=== PATIENT | male | born 1985 | race Caucasian/White ===

== ENCOUNTER 2023-04-26 15:09 | Outpatient (REF) | payer BC, SELFPAY | END 2023-04-26 15:10 | disposition home or self-care (01) | LOC: HO.BBR 15:09 | PROVIDERS: Visit Provider Internal Medicine Hematology & Oncology | DX: Z13.89 Encounter for screening for other disorder (principal) ==

== ENCOUNTER → 2023-07-25 13:47 | Outpatient (BNV) | payer BC, SELFPAY | PROVIDERS: PCP Internal Medicine; Visit Provider Internal Medicine Medical Oncology | DX: E83.119 Hemochromatosis, unspecified (principal) | CPT/HCPCS: 99204; 99213 ==

== ENCOUNTER 2023-07-25 15:05 | Outpatient (REF) | payer BC, SELFPAY ==
[2023-07-25 15:23] LABS: MANUAL DIFF FLAG NO
[2023-07-25 15:26] LABS: Basophils Percent Auto 0.3 % (0-2); Eosinophils Absolute Auto 0.1 X10*3/uL (0.0-0.4); Hematocrit 39.7 % (42.0-52.0); Hemoglobin 14.3 g/dl (14.0-18.0); Imm Gran Abs Auto 0.02 X10*3/uL (0.00-0.03); Imm Gran Pct Auto 0.3 % (0.0-0.4); Lymphocytes Absolute Auto 1.7 X10*3/uL (1.2-4.9); Mean Corpuscular Hemoglobin 32.6 pg (27.0-33.0); Mean Corpuscular Volume 90.6 fL (80.0-98.0); Mean Platelet Volume 11.2 fL (9.4-12.4); Monocytes Absolute Auto 0.6 X10*3/uL (0.1-1.2); Monocytes Percent Auto 8.3 % (2-11); Neutrophils Absolute Auto 4.8 x10*3/uL (2.0-8.3); Neutrophils Percent Auto 66.1 % (45-73); Platelet Count 236 X10*3/uL (160-400); Red Blood Count 4.38 X10*6/uL (4.60-5.80); Red Cell Distribution Width 11.9 % (11.0-16.0); White Blood Count 7.2 X10*3/uL (4.8-10.8)
[2023-07-25 16:09] LABS: Alanine Aminotransferase 23 U/L (0-40); Albumin Level 4.7 g/dL (3.5-5.0); Alkaline Phosphatase 62 U/L (39-117); Anion Gap 15 (12-20); Aspartate Amino Transferase 23 U/L (5-37); Bilirubin Total 0.8 mg/dL (0.0-1.0); Blood Urea Nitrogen 9 mg/dL (9-16); Calcium 9.3 mg/dL (8.4-10.2); Carbon Dioxide 24 mmol/L (22-29); Chloride 100 mmol/L (96-108); Estimated Glomerular Filt Rate > 60; Glucose Random 92 mg/dL (60-115); Iron 197 mcg/dL (45-160); Percent Iron Saturation 79 % (15-50); Potassium 3.9 mmol/L (3.3-5.1); Sodium 135 mmol/L (135-145); Total Iron Binding Capacity 249 mcg/dL (228-428); Total Protein 7.4 g/dL (6.5-8.0); Unsaturated Iron Binding 52 ug/dL
[2023-07-25 16:26] LABS: Ferritin 90 ng/mL (20-250)
[2023-07-27 12:29] LABS: Alpha Fetoprotein 2.2 ng/mL (<6.1)
== END 2023-07-25 15:06 | disposition home or self-care (01) ==
LOC: HO.BBR 15:05
PROVIDERS: Visit Provider Internal Medicine Medical Oncology
DX: E83.110 Hereditary hemochromatosis (principal)
CPT/HCPCS: 36415; 80053; 82105; 82728; 83540; 85025

== ENCOUNTER 2023-10-03 13:52 | Outpatient (REF) | payer BC, SELFPAY ==
[2023-10-03 14:10] LABS: MANUAL DIFF FLAG NO
[2023-10-03 14:12] LABS: Basophils Percent Auto 0.5 % (0-2); Eosinophils Absolute Auto 0.1 X10*3/uL (0.0-0.4); Eosinophils Percent Auto 1.2 % (0-4); Hematocrit 38.4 % (42.0-52.0); Hemoglobin 13.7 g/dl (14.0-18.0); Imm Gran Abs Auto 0.02 X10*3/uL (0.00-0.03); Imm Gran Pct Auto 0.3 % (0.0-0.4); Lymphocytes Absolute Auto 1.9 X10*3/uL (1.2-4.9); Lymphocytes Percent Auto 28.4 % (20-40); Mean Corpuscular HGB Conc 35.7 g/dl (31.0-36.0); Mean Corpuscular Hemoglobin 32.5 pg (27.0-33.0); Mean Platelet Volume 10.8 fL (9.4-12.4); Monocytes Absolute Auto 0.5 X10*3/uL (0.1-1.2); Monocytes Percent Auto 7.8 % (2-11); Neutrophils Absolute Auto 4.1 x10*3/uL (2.0-8.3); Neutrophils Percent Auto 61.8 % (45-73); Platelet Count 251 X10*3/uL (160-400); Red Blood Count 4.22 X10*6/uL (4.60-5.80); Red Cell Distribution Width 12.1 % (11.0-16.0); White Blood Count 6.6 X10*3/uL (4.8-10.8)
[2023-10-03 15:02] LABS: Alanine Aminotransferase 28 U/L (0-40); Albumin Level 4.7 g/dL (3.5-5.0); Alkaline Phosphatase 70 U/L (39-117); Anion Gap 13 (12-20); Aspartate Amino Transferase 27 U/L (5-37); Bilirubin Total 0.6 mg/dL (0.0-1.0); Blood Urea Nitrogen 12 mg/dL (9-16); Carbon Dioxide 25 mmol/L (22-29); Chloride 103 mmol/L (96-108); Estimated Glomerular Filt Rate > 60; Glucose Random 96 mg/dL (60-115); Iron 198 mcg/dL (45-160); Percent Iron Saturation 78 % (15-50); Potassium 3.9 mmol/L (3.3-5.1); Sodium 137 mmol/L (135-145); Total Iron Binding Capacity 254 mcg/dL (228-428); Total Protein 7.3 g/dL (6.5-8.0); Unsaturated Iron Binding 56 ug/dL
[2023-10-03 15:11] LABS: Ferritin 81 ng/mL (20-250)
== END 2023-10-03 13:53 | disposition home or self-care (01) ==
LOC: HO.BBR 13:52
PROVIDERS: PCP Internal Medicine; Visit Provider Internal Medicine Medical Oncology
DX: E83.110 Hereditary hemochromatosis (principal)
CPT/HCPCS: 36415; 80053; 82728; 83540; 85025

== ENCOUNTER 2023-12-04 10:52 | Outpatient (REF) | payer BC, SELFPAY ==
[2023-12-04 11:18] LABS: MANUAL DIFF FLAG NO
[2023-12-04 11:22] LABS: Basophils Percent Auto 0.6 % (0-2); Eosinophils Absolute Auto 0.1 X10*3/uL (0.0-0.4); Eosinophils Percent Auto 1.9 % (0-4); Hematocrit 39.2 % (42.0-52.0); Hemoglobin 13.4 g/dl (14.0-18.0); Imm Gran Abs Auto 0.02 X10*3/uL (0.00-0.03); Imm Gran Pct Auto 0.4 % (0.0-0.4); Lymphocytes Absolute Auto 1.5 X10*3/uL (1.2-4.9); Lymphocytes Percent Auto 28.5 % (20-40); Mean Corpuscular HGB Conc 34.2 g/dl (31.0-36.0); Mean Corpuscular Hemoglobin 31.9 pg (27.0-33.0); Mean Corpuscular Volume 93.3 fL (80.0-98.0); Mean Platelet Volume 11.4 fL (9.4-12.4); Monocytes Absolute Auto 0.4 X10*3/uL (0.1-1.2); Neutrophils Absolute Auto 3.3 x10*3/uL (2.0-8.3); Neutrophils Percent Auto 60.6 % (45-73); Platelet Count 210 X10*3/uL (160-400); Red Cell Distribution Width 12.5 % (11.0-16.0); White Blood Count 5.4 X10*3/uL (4.8-10.8)
[2023-12-04 13:01] LABS: Alanine Aminotransferase 27 U/L (0-40); Albumin Level 4.5 g/dL (3.5-5.0); Alkaline Phosphatase 70 U/L (39-117); Anion Gap 13 (12-20); Aspartate Amino Transferase 28 U/L (5-37); Bilirubin Total 0.7 mg/dL (0.0-1.0); Blood Urea Nitrogen 11 mg/dL (9-16); Calcium 8.5 mg/dL (8.4-10.2); Carbon Dioxide 24 mmol/L (22-29); Chloride 105 mmol/L (96-108); Estimated Glomerular Filt Rate > 60; Glucose Random 100 mg/dL (60-115); Potassium 4.1 mmol/L (3.3-5.1); Sodium 138 mmol/L (135-145); Total Protein 6.9 g/dL (6.5-8.0)
[2023-12-04 13:06] LABS: Ferritin 58 ng/mL (20-250); Iron 246 mcg/dL (45-160); Percent Iron Saturation 91 % (15-50); Total Iron Binding Capacity 271 mcg/dL (228-428); Unsaturated Iron Binding < 25 ug/dL
== END 2023-12-04 10:53 | disposition home or self-care (01) ==
LOC: HO.BBR 10:52
PROVIDERS: PCP Internal Medicine; Visit Provider Internal Medicine Medical Oncology
DX: E83.110 Hereditary hemochromatosis (principal)
CPT/HCPCS: 36415; 80053; 82728; 83540; 85025

== ENCOUNTER 2024-01-11 13:01 | Outpatient (REF) | payer BC, SELFPAY ==
[2024-01-11 13:27] LABS: MANUAL DIFF FLAG NO
[2024-01-11 13:31] LABS: Basophils Percent Auto 0.6 % (0-2); Eosinophils Absolute Auto 0.1 X10*3/uL (0.0-0.4); Eosinophils Percent Auto 1.1 % (0-4); Hematocrit 40.7 % (42.0-52.0); Hemoglobin 14.3 g/dl (14.0-18.0); Imm Gran Abs Auto 0.02 X10*3/uL (0.00-0.03); Imm Gran Pct Auto 0.4 % (0.0-0.4); Lymphocytes Absolute Auto 1.7 X10*3/uL (1.2-4.9); Mean Corpuscular HGB Conc 35.1 g/dl (31.0-36.0); Mean Corpuscular Hemoglobin 32.2 pg (27.0-33.0); Mean Corpuscular Volume 91.7 fL (80.0-98.0); Monocytes Absolute Auto 0.4 X10*3/uL (0.1-1.2); Monocytes Percent Auto 7.6 % (2-11); Neutrophils Absolute Auto 3.2 x10*3/uL (2.0-8.3); Neutrophils Percent Auto 59.3 % (45-73); Platelet Count 229 X10*3/uL (160-400); Red Blood Count 4.44 X10*6/uL (4.60-5.80); Red Cell Distribution Width 11.9 % (11.0-16.0); White Blood Count 5.4 X10*3/uL (4.8-10.8)
[2024-01-11 14:06] LABS: Alanine Aminotransferase 23 U/L (0-40); Albumin Level 4.8 g/dL (3.5-5.0); Alkaline Phosphatase 65 U/L (39-117); Anion Gap 9 (12-20); Aspartate Amino Transferase 22 U/L (5-37); Bilirubin Total 0.6 mg/dL (0.0-1.0); Blood Urea Nitrogen 13 mg/dL (9-16); Calcium 8.7 mg/dL (8.4-10.2); Carbon Dioxide 27 mmol/L (22-29); Chloride 103 mmol/L (96-108); Estimated Glomerular Filt Rate > 60; Glucose Random 94 mg/dL (60-115); Iron 171 mcg/dL (45-160); Percent Iron Saturation 67 % (15-50); Potassium 4.2 mmol/L (3.3-5.1); Sodium 135 mmol/L (135-145); Total Iron Binding Capacity 255 mcg/dL (228-428); Total Protein 7.3 g/dL (6.5-8.0); Unsaturated Iron Binding 84 ug/dL
[2024-01-11 14:20] LABS: Ferritin 77 ng/mL (20-250)
== END 2024-01-11 13:02 | disposition home or self-care (01) ==
LOC: HO.BBR 13:01
PROVIDERS: PCP Internal Medicine; Visit Provider Internal Medicine Medical Oncology
DX: E83.110 Hereditary hemochromatosis (principal)
CPT/HCPCS: 36415; 80053; 82728; 83540; 85025

== ENCOUNTER 2024-03-12 14:54 | Outpatient (REF) | payer BC, SELFPAY ==
[2024-03-12 15:10] LABS: MANUAL DIFF FLAG NO
[2024-03-12 15:12] LABS: Basophils Percent Auto 0.4 % (0-2); Eosinophils Absolute Auto 0.1 X10*3/uL (0.0-0.4); Eosinophils Percent Auto 1.5 % (0-4); Hematocrit 37.9 % (42.0-52.0); Hemoglobin 13.5 g/dl (14.0-18.0); Imm Gran Abs Auto 0.02 X10*3/uL (0.00-0.03); Imm Gran Pct Auto 0.3 % (0.0-0.4); Lymphocytes Absolute Auto 1.7 X10*3/uL (1.2-4.9); Lymphocytes Percent Auto 24.6 % (20-40); Mean Corpuscular HGB Conc 35.6 g/dl (31.0-36.0); Mean Corpuscular Hemoglobin 32.8 pg (27.0-33.0); Mean Corpuscular Volume 92.2 fL (80.0-98.0); Mean Platelet Volume 11.2 fL (9.4-12.4); Monocytes Absolute Auto 0.6 X10*3/uL (0.1-1.2); Monocytes Percent Auto 8.4 % (2-11); Neutrophils Absolute Auto 4.5 x10*3/uL (2.0-8.3); Neutrophils Percent Auto 64.8 % (45-73); Platelet Count 234 X10*3/uL (160-400); Red Blood Count 4.11 X10*6/uL (4.60-5.80); Red Cell Distribution Width 12.3 % (11.0-16.0); White Blood Count 6.9 X10*3/uL (4.8-10.8)
[2024-03-12 16:44] LABS: Alanine Aminotransferase 20 U/L (0-40); Albumin Level 4.5 g/dL (3.5-5.0); Alkaline Phosphatase 62 U/L (39-117); Anion Gap 11 (12-20); Aspartate Amino Transferase 20 U/L (5-37); Bilirubin Total 0.5 mg/dL (0.0-1.0); Blood Urea Nitrogen 15 mg/dL (9-16); Calcium 8.9 mg/dL (8.4-10.2); Carbon Dioxide 27 mmol/L (22-29); Chloride 105 mmol/L (96-108); Estimated Glomerular Filt Rate 51; Glucose Random 83 mg/dL (60-115); Iron 190 mcg/dL (45-160); Percent Iron Saturation 80 % (15-50); Sodium 139 mmol/L (135-145); Total Iron Binding Capacity 238 mcg/dL (228-428); Unsaturated Iron Binding 48 ug/dL
[2024-03-12 17:01] LABS: Ferritin 48 ng/mL (20-250)
== END 2024-03-12 14:55 | disposition home or self-care (01) ==
LOC: HO.BBR 14:54
PROVIDERS: PCP Internal Medicine; Visit Provider Internal Medicine Medical Oncology
DX: E83.110 Hereditary hemochromatosis (principal)
CPT/HCPCS: 36415; 80053; 82728; 83540; 85025

== ENCOUNTER 2024-05-13 14:02 | Outpatient (REF) | payer BC, SELFPAY | END 2024-05-13 14:03 | disposition home or self-care (01) | LOC: HO.BBR 14:02 | PROVIDERS: PCP Internal Medicine; Visit Provider Internal Medicine Medical Oncology | DX: Z13.89 Encounter for screening for other disorder (principal) ==

== ENCOUNTER 2024-07-17 15:02 | Outpatient (REF) | payer BC, SELFPAY | END 2024-07-17 15:03 | disposition home or self-care (01) | LOC: HO.BBR 15:02 | PROVIDERS: PCP Internal Medicine; Visit Provider Internal Medicine Medical Oncology | DX: Z13.89 Encounter for screening for other disorder (principal) ==

== ENCOUNTER 2024-10-02 15:03 | Outpatient (REF) | payer BC, SELFPAY ==
[2024-10-02 15:15] LABS: MANUAL DIFF FLAG NO
[2024-10-02 15:17] LABS: Basophils Percent Auto 0.5 % (0-2); Eosinophils Absolute Auto 0.1 X10*3/uL (0.0-0.4); Eosinophils Percent Auto 1.7 % (0-4); Hematocrit 40.2 % (42.0-52.0); Imm Gran Abs Auto 0.02 X10*3/uL (0.00-0.03); Imm Gran Pct Auto 0.3 % (0.0-0.4); Lymphocytes Percent Auto 30.8 % (20-40); Mean Corpuscular HGB Conc 34.8 g/dl (31.0-36.0); Mean Corpuscular Hemoglobin 32.2 pg (27.0-33.0); Mean Corpuscular Volume 92.4 fL (80.0-98.0); Mean Platelet Volume 11.1 fL (9.4-12.4); Monocytes Absolute Auto 0.5 X10*3/uL (0.1-1.2); Neutrophils Absolute Auto 3.8 x10*3/uL (2.0-8.3); Neutrophils Percent Auto 58.7 % (45-73); Platelet Count 236 X10*3/uL (160-400); Red Blood Count 4.35 X10*6/uL (4.60-5.80); Red Cell Distribution Width 12.4 % (11.0-16.0); White Blood Count 6.5 X10*3/uL (4.8-10.8)
[2024-10-02 15:47] LABS: Alanine Aminotransferase 35 U/L (0-40); Albumin Level 4.7 g/dL (3.5-5.0); Anion Gap 11 (12-20); Aspartate Amino Transferase 28 U/L (5-37); Bilirubin Total 0.6 mg/dL (0.0-1.0); Blood Urea Nitrogen 11 mg/dL (9-16); Calcium 8.8 mg/dL (8.4-10.2); Carbon Dioxide 27 mmol/L (22-29); Chloride 106 mmol/L (96-108); Estimated Glomerular Filt Rate > 60; Glucose Random 96 mg/dL (60-115); Iron 177 mcg/dL (45-160); Percent Iron Saturation 75 % (15-50); Potassium 4.3 mmol/L (3.3-5.1); Sodium 140 mmol/L (135-145); Total Iron Binding Capacity 236 mcg/dL (228-428); Total Protein 7.1 g/dL (6.5-8.0); Unsaturated Iron Binding 59 ug/dL
[2024-10-02 15:56] LABS: Alkaline Phosphatase 68 U/L (39-117)
[2024-10-02 16:02] LABS: Ferritin 47 ng/mL (20-250)
== END 2024-10-02 15:04 | disposition home or self-care (01) ==
LOC: HO.BBR 15:03
PROVIDERS: PCP Internal Medicine; Visit Provider Internal Medicine Medical Oncology
DX: E83.110 Hereditary hemochromatosis (principal)
CPT/HCPCS: 36415; 80053; 82728; 83540; 85025

== ENCOUNTER 2024-12-18 15:07 | Outpatient (REF) | payer BC, SELFPAY ==
[2024-12-18 15:30] LABS: MANUAL DIFF FLAG NO
[2024-12-18 15:42] LABS: Basophils Percent Auto 0.6 % (0-2); Eosinophils Absolute Auto 0.1 X10*3/uL (0.0-0.4); Eosinophils Percent Auto 1.4 % (0-4); Hematocrit 39.5 % (42.0-52.0); Hemoglobin 14.2 g/dl (14.0-18.0); Imm Gran Abs Auto 0.02 X10*3/uL (0.00-0.03); Imm Gran Pct Auto 0.3 % (0.0-0.4); Lymphocytes Absolute Auto 1.8 X10*3/uL (1.2-4.9); Lymphocytes Percent Auto 27.3 % (20-40); Mean Corpuscular HGB Conc 35.9 g/dl (31.0-36.0); Mean Corpuscular Hemoglobin 32.7 pg (27.0-33.0); Mean Platelet Volume 10.9 fL (9.4-12.4); Monocytes Absolute Auto 0.5 X10*3/uL (0.1-1.2); Monocytes Percent Auto 7.5 % (2-11); Neutrophils Absolute Auto 4.1 x10*3/uL (2.0-8.3); Neutrophils Percent Auto 62.9 % (45-73); Platelet Count 232 X10*3/uL (160-400); Red Blood Count 4.34 X10*6/uL (4.60-5.80); Red Cell Distribution Width 12.1 % (11.0-16.0); White Blood Count 6.5 X10*3/uL (4.8-10.8)
[2024-12-18 16:28] LABS: Iron 116 mcg/dL (45-160); Percent Iron Saturation 47 % (15-50); Total Iron Binding Capacity 249 mcg/dL (228-428); Unsaturated Iron Binding 133 ug/dL
[2024-12-18 16:42] LABS: Ferritin 36 ng/mL (20-250)
--- OUTSIDE RECORDS SUMMARY | 2024-12-18 18:09 | XMS_ITS | Continuity of Care Document ---
Author Name [facility] Organization [facility] Care Team Providers Care Bufferer Name Role Phone [facility] Unavailable Unavailable Immunizations Combined list of available immunizations from the Department of Defense and Veterans Affairs facilities. 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 Source influenza virus vaccine,split 2009 UNK 15 Unknown complet ed influenza virus vaccine,s plit 06/25/10 Given Ambulat ory Pharmac y anthrax vaccine 2009 UNK 24 Unknown complet ed anthrax vaccine 04/01/10 Given Ambulat ory Pharmac y Novel influenza-H1N 1-09, injectable 2009 UNK 127 Unknown complet ed Novel influenza -[id number], injectabl e 11/07/09 Given Ambulat ory Pharmac y yellow fever vaccine 2009 UNK 37 Unknown complet ed yellow fever vaccine 11/07/09 Given Ambulat ory Pharmac y Novel influenza-H1N 1-09, injectable 2008 UNK 127 Unknown complet ed Novel influenza -[id number], injectabl e 09/05/09 Given Ambulat ory Pharmac y typhoid vaccine, parenteral 2008 UNK 41 Unknown complet ed typhoid vaccine, parentera l 07/15/09 Given Ambulat ory Pharmac y tetanus-dipht h toxoids (Td) adult/adol 2008 UNK 09 Unknown complet ed tetanus-d iphth toxoids (Td) adult/ado l 07/15/09 Given Ambulat ory Pharmac y influenza virus vaccine, unspecified 2008 UNK 88 Unknown complet ed influenza virus vaccine, unspecifi ed 07/15/09 Given Ambulat ory Pharmac y anthrax vaccine 2007 UNK 24 Unknown complet ed anthrax vaccine 01/14/08 Given Ambulat ory Pharmac y influenza virus vaccine, live 2006 [id number] Unknown complet ed influenza virus vaccine, live 08/27/07 Given Ambulat ory Pharmac y anthrax vaccine 2006 [id number] Unknown complet ed anthrax vaccine 08/14/07 Given Ambulat ory Pharmac y anthrax vaccine 2006 [id number] Unknown complet ed anthrax vaccine 07/12/07 Given Ambulat ory Pharmac y anthrax vaccine 2006 [id number] Unknown complet ed anthrax vaccine 06/27/07 Given Ambulat ory Pharmac y vaccinia (smallpox) vaccine 2006 [id number] 75 [facility] complet ed vaccinia (smallpox ) vaccine 03/05/07 Given Ambulat ory Pharmac y yellow fever vaccine 2006 UNKNOWN 37 Unknown complet ed yellow fever vaccine 11/10/06 Given Ambulat ory Pharmac y influenza virus vaccine,split 2005 [id number] 15 Unknown complet ed influenza virus vaccine,s plit 08/09/06 Given Ambulat ory Pharmac y poliovirus vaccine, live, oral 2005 UNKNOWN 02 Unknown complet ed polioviru s vaccine, live, oral 01/18/06 Given Ambulat ory Pharmac y hepatitis A adult vaccine 2005 UNKNOWN 52 Unknown complet ed hepatitis A adult vaccine 01/18/06 Given Ambulat ory Pharmac y typhoid vaccine, parenteral 2005 UNKNOWN 41 Unknown complet ed typhoid vaccine, parentera l 01/18/06 Given Ambulat ory Pharmac y meningococcal polysaccharid e (MPSV4) 2001 UNKNOWN 32 Unknown complet ed meningoco ccal polysacch aride (MPSV4) 02/21/02 Given Ambulat ory Pharmac y hepatitis A adult vaccine 2001 UNKNOWN 52 Unknown complet ed hepatitis A adult vaccine 02/21/02 Given Ambulat ory Pharmac y tetanus-dipht h toxoids (Td) adult/adol 1998 UNKNOWN 09 Unknown complet ed tetanus-d iphth toxoids (Td) adult/ado l 05/13/99 Given Ambulat ory Pharmac y varicella virus vaccine 1997 UNKNOWN 21 Unknown complet ed varicella virus vaccine 06/19/98 Given Ambulat ory Pharmac y varicella virus vaccine 1997 UNKNOWN 21 Unknown complet ed varicella virus vaccine 05/08/98 Given Ambulat ory Pharmac y hepatitis B adult vaccine 1997 UNKNOWN 43 Unknown complet ed hepatitis B adult vaccine 01/27/98 Given Ambulat ory Pharmac y hepatitis B adult vaccine 1996 UNKNOWN 43 Unknown complet ed hepatitis B adult vaccine 09/03/97 Given Ambulat ory Pharmac y hepatitis B adult vaccine 1996 UNKNOWN 43 Unknown complet ed hepatitis B adult vaccine 07/29/97 Given Ambulat ory Pharmac y measles/mumps /rubella virus vaccine 1994 UNKNOWN 03 Unknown complet ed measles/m umps/rube lla virus vaccine 04/11/95 Given Ambulat ory Pharmac y diphtheria/te tanus toxoids/pertu is 1988 UNKNOWN 01 Unknown complet ed diphtheri a/tetanus toxoids/p ertussis 05/19/89 Given Ambulat ory Pharmac y poliovirus vaccine, unspecified 1988 UNKNOWN 89 Unknown complet ed polioviru s vaccine, unspecifi ed 05/19/89 Given Ambulat ory Pharmac y diphtheria/te tanus toxoids/pertu is 1985 UNKNOWN 01 Unknown complet ed diphtheri a/tetanus toxoids/p ertussis 12/23/85 Given Ambulat ory Pharmac y poliovirus vaccine, unspecified 1985 UNKNOWN 89 Unknown complet ed polioviru s vaccine, unspecifi ed 12/23/85 Given Ambulat ory Pharmac y measles/mumps /rubella virus vaccine 1985 UNKNOWN 03 Unknown complet ed measles/m umps/rube lla virus vaccine 09/30/85 Given Ambulat ory Pharmac y poliovirus vaccine, unspecified 1984 UNKNOWN 89 Unknown complet ed polioviru s vaccine, unspecifi ed 01/04/85 Given Ambulat ory Pharmac y diphtheria/te tanus toxoids/pertu is 1984 UNKNOWN 01 Unknown complet ed diphtheri a/tetanus toxoids/p ertussis 01/04/85 Given Ambulat ory Pharmac y diphtheria/te tanus toxoids/pertu is 1984 UNKNOWN 01 Unknown complet ed diphtheri a/tetanus toxoids/p ertussis 84 Given Ambulat ory Pharmac y poliovirus vaccine, unspecified 1984 UNKNOWN 89 Unknown complet ed polioviru s vaccine, unspecifi ed 84 Given Ambulat ory Pharmac y poliovirus vaccine, unspecified 1983 UNKNOWN 89 Unknown complet ed polioviru s vaccine, unspecifi ed 84 Given Ambulat ory Pharmac y diphtheria/te tanus toxoids/pertu is 1983 UNKNOWN 01 Unknown complet ed diphtheri a/tetanus toxoids/p ertussis 84 Given Ambulat ory Pharmac y Procedures Combined list of: 1) Procedures from Department of Veterans Affairs facilities [facility], not all [place] non-surgical procedures are included; 2) All procedures from the Department of Defense facilities. Procedure Procedure Type Code Date Perfomer Comments Sourc e No data available for this section Ambulatory P harmacy Assessment and Plan Combined list of future care activities from Department of Defense and Veterans [facility] facilities (e.g., assessment and plan notes, appointments, orders, and referrals). Additional future care activities may be listed in the Plan of Care section. Result Assessment and Plan Date Source Assessment and Plan No data available for this section 12/18/2024 Ambulatory Pharmacy Functional Status Combined list of recent functional and cognitive assessments recorded at Department of Defense and Veterans Affairs ([place]).VA Functional [place] Measurement (FIM) Scale: 1 = Total Assistance (Subject = 0% +), 2 = Maximal Assistance (Subject = 25% +), 3 = Moderate Assistance (Subject = 50% +), 4 = Minimal Assistance (Subject = 75% +), 5 = Supervision, 6 = Modified [place] (Device), 7 = Complete [place] (Timely, Safely). Assessment Date/Time Source Assessment Type Assessment Skill Assessment Score Assessment Details No data available for this section
--- OUTSIDE RECORDS SUMMARY | 2024-12-18 18:09 | XMS_ITS | Data Portability ---
Author Organization [facility] [place] [facility] Address [address] [place] [address] Care Team Providers Care Assisted Living Manager Name Role Phone RONALD MATHEW Primary Care Provider [phone] RONALD MATHEW Referring Provider Assessment No assessment recorded. Plan of Treatment Reminders Order Date Submit Date Provider Last Modified By Organization Details Last Modified Time Details Appointments None record ed. Lab None record ed. Referral None record ed. Procedures None record ed. Surgeries None record ed. Imaging None record ed. Medication Orders None record ed. Patient TargetsNo targets recorded. Patient InstructionsNo instructions recorded. Reason for Referral None Reported. Problems Name Problem SNOMED Code Status Onset Date Resolution Date Notes Provider Name and Address Organization Details Recorded Time Fracture of middle phalanx of finger [id number] Active 017 SISI WAGONER MD [address] [place] [address], [id number] [facility] 7 08:21:52 Problem Notes None recorded. Procedures Surgical History Date Name Laterality Status Provider Name and Address Organization Details Recorded Time Knee arthroscopy /surgery completed chemo aguilar [facility] 06/21/2017 15:40:37 Imaging Results None recorded. Procedure Notes None recorded. Medical Equipment None Reported. Allergies Allergen ID Allergen Name Allergen Category Reaction Reaction Severity Criticality Documentation Date Start Date Code Code System Note Provider Name and Address Organization Details Recorded Time 40726 No known allergy (situatio n) Not available Not available Not available Not available 11/21/2016 78067 6003 SNOMED Not Available [facility] 03:[facility] Medications Name Sig Start Date Stop Date Status Note LastModified by Organization Details LastModified Time oxycodone 5 mg tablet 2016 completed Not Available Not Available Not Available Vitals Date Recorded Body height Provider Name an d Address Organization Details Last Updated DateTime 09/13/2017 187.96 cm Jovi Olmstead [facility] 09/13/2017 15:17:17 Date Recorded Body temperature Body mass index (BMI) Body weight Provider Name and Address Organization Details Last Updated DateTime 09/13/2017 98.2 [degF] 27 kg/m2 25259.4 g Joi Kim [facility] 09/13/2017 15:23:46 Date Recorded Pain severity - 0-10 verbal numeric rating [Score] - Reported Provider Name and Address Organization Details Last Updated DateTime 09/13/2017 1 Not Available [facility] 8 05:58:51 Date Recorded Body height Body mass index (BMI) Body weight Provider Name and Address Organization Details Last Updated DateTime 06/21/2017 187.96 cm 27 kg/m2 58840.4 g chemo aguilra [facility] 06/21/2017 15:39:36 Date Recorded Body temperature Provider Name a nd Address Organization Details Last Updated DateTime 06/21/2017 97.4 [degF] Jovi Bernardokameron [facility] 06/21/2017 16:21:04 Social History Question Answer Notes LastModified by Organizat ion Details LastModified Time Tobacco Smoking Status Never Smoker chemo jeff [facility] 06/21/2017 15:40:24 What Is Your Level Of Alcohol Consumption? Occasional Information not available 06/21/2017 How Many Days In The Past Year Have You Had A Heavy Drinking Consumption (4+ Female, 5+ Male)? 0 Information not available 06/21/2017 What Was The Date Of Your Most Recent Tobacco Screening? 09/13/2017 Information not available 04/17/2019 Sex: Unknown Functional Status None recorded. Mental Status None recorded. Family History Relationship Description Onset Age of this Age Resolved Age Notes LastModified by Organization Details LastModified Time Father No current problems or disability cwynters Not available 06/21 15:40:22 Mother No current problems or disability cwynters Not available 06/21 15:40:22 Medical History Condition Response Coronary Artery Disease N Dyslipidemia N Gout N Artificial Joints N Thyroid Problems N Depression N Lung Disease N Pacemaker N Anemia N Back Pain N Hearing Impairment N Heart Attack ([place]) N Headaches/Migraines N Deep Vein Thrombosis N Anxiety Disorder N Diabetes N Bleeding Disorder N Arthritis N Seizures/Epilepsy N Blood Clot N Tuberculosis N AIDS/HIV N Inflammatory Bowel Disease N Acid Reflux (GERD) N Cancer N Stroke N Substance Abuse N Peripheral Vascular Disease N Asthma/COPD N Wears Glasses/Contacts N Hepatitis N Heart Disease N Organ Transplant N Rheumatoid Arthritis N Pulmonary Embolism N Fibromyalgia N Hypertension N Stomach Ulcer N Osteoporosis N Kidney Disease N Past Encounters Encounter ID Performer Location Encounter Start Date Encounter Closed Date Diagnosis/Indication Diagnosis SNOMED-CT Code Diagnosis ICD10 Code Diagnosis Note [id number] SISI WAGONER MD [address],[facility] [address] [place] [address] 06/21/2017 15:30:07 07/05/2017 08:31:20 Fracture of middle phalanx of finger 190612273 S62.624A Patient sustained a minimally displaced fracture of the right ring finger distal aspect of the middle phalanx. It is a depression fracture. Radial aspect. That's why still swollen. I do believe this will get better on its own. We'll likely stay swollen for quite a while but hopefully the tenderness and the pain will improve. Options at this point include splinting. I did fit the patient with a Stax splint in the office today. This will protect his finger. Allow additional healing and symptom control. He will follow up as needed. [id number] SISI WAGONER MD [address] [place] [address] 09/13/2017 14:32:28 09/29/2017 14:06:36 Fracture of middle phalanx of finger [id number] S62.624A Patient sustained a minimally displaced fracture of the right ring finger distal aspect of the middle phalanx. It is a depression fracture. Radial aspect. Overall injury is stable. He has some residual stiffness and swelling at the DIP joint. This could be to come to joint injury. It might not overly improved. I spoke with the patient about these issues. 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 He can wear his splint comfort. He will follow up with me as needed. Health Concerns Section Related Observation LastModified by Organization Detai ls LastModified Time None Recorded Concern Status LastModified by Organization Details LastModified Time None Recorded Advance Directives Directive None Recorded Payers Encounter Date Sequence Insurance Name Policy Number Policy Martínez Covered Member ID Martínez Member ID Guarantor Name 06/21/2017 1 [facility] [id number] Ron Franks [id number] Ron Franks 09/13/2017 1 [facility] [id number] Ron Franks [id number] Ron Franks Notes Date Note Type Note Provider Name and Address Organization Details Recorded Time 06/21/2017 text/html Wrist/HandReport ed bypatient.Quality:t hrobbing; sharp; dull Alleviating Factors:rest; elevation Aggravating Factors:lifting; carrying; pushing/pulling; gripping; grasping; squeezing; weightbearing Associated Symptoms:no tingling; no redness; no warmth; no instability; no radiation Patient presents today for evaluation of a new finger. I previously treated him for an open reduction of a scaphoid fracture. He recovered well from that injury. He reports today here for evaluation of his right Ring finger injury. He reports about 3 months ago he was playing softball and he somehow jammed his hand on the ball. Had no swelling. Difficulty with gripping and grasping. He had an x-ray which diagnosed a distal middle phalanx fracture. Radial aspect of the condyles depressed. It's been persistently sore and swollen. SISI WAGONER MD [address] [place] [address],[address], [place], [address] 07/05/2017 08:22:10 09/13/2017 text/html Wrist/HandReport ed bypatient.Quality:t hrobbing; sharp; dull Alleviating Factors:rest; elevation Aggravating Factors:lifting; carrying; pushing/pulling; gripping; grasping; squeezing; weightbearing Associated Symptoms:no tingling; no redness; no warmth; no instability; no radiation Patient presents for a followup visit. He sustained this A minimally displaced right ring finger middle phalanx fracture. He basically had collapse of the condyle. He reports he still has some stiffness and some associated swelling. 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 Also some stiffness. Injury was April of 2017. SISI WAGONER MD [address] [place] [address],[address], [place], [address], [facility] 09/29/2017 12:43:18
== END 2024-12-18 15:08 | disposition home or self-care (01) ==
LOC: HO.BBR 15:07
PROVIDERS: PCP Internal Medicine; Visit Provider Internal Medicine Medical Oncology
DX: E83.110 Hereditary hemochromatosis (principal)
CPT/HCPCS: 36415; 82728; 83540; 85025

== ENCOUNTER 2025-02-26 15:13 | Outpatient (REF) | payer BC, SELFPAY | END 2025-02-26 15:14 | disposition home or self-care (01) | LOC: HO.BBR 15:13 | PROVIDERS: PCP Internal Medicine; Visit Provider Internal Medicine Medical Oncology | DX: Z13.89 Encounter for screening for other disorder (principal) ==

== ENCOUNTER 2025-04-29 15:02 | Outpatient (REF) | payer BC, SELFPAY ==
[2025-04-29 15:14] LABS: MANUAL DIFF FLAG NO
[2025-04-29 15:15] LABS: Hematocrit 37.5 % (42.0-52.0); Hemoglobin 13.3 g/dl (14.0-18.0); Imm Gran Abs Auto 0.03 X10*3/uL (0.00-0.03); Imm Gran Pct Auto 0.4 % (0.0-0.4); Lymphocytes Absolute Auto 2.0 X10*3/uL (1.2-4.9); Mean Corpuscular HGB Conc 35.5 g/dl (31.0-36.0); Mean Corpuscular Hemoglobin 32.4 pg (27.0-33.0); Mean Corpuscular Volume 91.5 fL (80.0-98.0); NRBC Abs Auto 0.000 X10*3/uL (0.0-0.012); NRBC Pct Auto 0.0 /100WBC (0.0-0.2); Platelet Count 215 X10*3/uL (160-400); Red Blood Count 4.10 X10*6/uL (4.60-5.80); White Blood Count 7.5 X10*3/uL (4.8-10.8)
--- OUTSIDE RECORDS SUMMARY | 2025-04-29 15:34 | XMS_ITS | Clinical Summary ---
Author Organization [facility] Address [address] [place] [phone] Phone Care Team Providers Care Inspector Cold Working Name Role Phone Dayne Brar MD Primary Care Provider [phone] Allergies No known active allergies Medications No known medications Active Problems Problem Noted Date Diagnosed Date Anemia 08/10/2022 Hemochromatosis 08/10/2022 Overview (08/10/2022): Phlebotomy once every 4-8 weeks as long as hematocrit remains >38% and until serum ferritin is lower than 20. CBC prior to every Phlebotomy and Ferrtin levels every 8 weeks Stiffness of finger joint 08/10/2022 Sprain of interphalangeal joint of finger 2021 Fracture of middle phalanx of finger 07/05/2017 Social History Tobacco Use Types Packs/Day Years Used Date Smoking Tobacco: Never Assessed Education Answer Date Recorded Are you interested in more education? Not on reta e 01/20/2023 Are you concerned about learning? Not on file 01/20/2023 No 01/20/2023 No 01/20/2023 Digital Access Answer Date Recorded No 02/18/2023 No 02/18/2023 No 02/18/2023 Reliable internet access at home? Not on file 02/18/2023 Device with a working camera? Not on file Sex and Gender Information Value Date Recorded Sex Assigned at Not on file Legal Sex Male 10:43 AM EDT Gender Identity Not on file Sexual Orientation Not on file Last Filed Vital Signs Vital Sign Reading Time Taken Comments Blood Pressure 150/88 05/08/2023 2:33 PM EDT Pulse 78 05/08/2023 2:33 PM EDT Temperature 36.4 C (97.5 F) 01/26/2023 1:01 PM EDT Respiratory Rate 16 08/10/2022 12:06 PM EST Oxygen Saturation 98% 08/10/2022 12:06 PM EST Inhaled Oxygen Concentration - - Weight 92.5 kg (204 lb) 08/10/2022 12:06 PM EST Height 188 cm (6' 2 ) 08/10/2022 12:06 PM EST Body Mass Index 26.19 08/10/2022 12:06 PM EST Plan of Treatment Health Maintenance Due Date Last Done Comments LIPID PANEL 1984 DEPRESSION SCREENING 1996 SMOKING Hx and SMOKELESS TOBACCO SCREENING 1997 HEPATITIS C SCREENING 2002 HIV ONE-TIME SCREENING (18-65 YEARS) 2002 SCREENING FOR DIABETES 2019 COVID-19 VACCINE ( season) 2024 08/10/2022, 09/14/2021, 01/20/2021, Additional history exists Adult Td,Tdap Booster 03/01/2028 03/01/2018 , 07/15/2009, 05/13/1999 MENINGOCOCCAL VACCINES (ACWY) Aged Out 02/21/2002 No longer eligible based on patient's age to complete this topic HEPATITIS A VACCINES Completed 01/18/2006, 02/22/20 02 HIB VACCINES Aged Out No longer eligi ble based on patient's age to complete this topic MENINGOCOCCAL VACCINES (B) Aged Out N o longer eligible based on patient's age to complete this topic PNEUMOCOCCAL VACCINES (0-49 years) Aged Out No longer eligible based on patient's age to complete this topic Medical Devices Not on file Insurance [facility] Care Teams Inspector Cold Working Relationship Specialty Start Date End Date Dayne Brar MD [address] [place] [id number] [email or web address] PCP - General Internal Medicine 08/03/21 Additional Source Comments The information contained in this document represents components of the legal health record. It is not the complete legal health record.[facility]
[2025-04-29 15:45] LABS: Iron 59 mcg/dL (45-160); Percent Iron Saturation 26 % (15-50); Total Iron Binding Capacity 230 mcg/dL (228-428); Unsaturated Iron Binding 171 ug/dL
[2025-04-29 15:59] LABS: Ferritin 22 ng/mL (20-250)
== END 2025-04-29 15:03 | disposition home or self-care (01) ==
LOC: HO.BBR 15:02
PROVIDERS: PCP Internal Medicine; Visit Provider Internal Medicine Medical Oncology
DX: E83.110 Hereditary hemochromatosis (principal)
CPT/HCPCS: 36415; 82728; 83540; 85025

== ENCOUNTER 2025-07-02 15:18 | Outpatient (REF) | payer BC, SELFPAY | END 2025-07-02 15:19 | disposition home or self-care (01) | LOC: HO.BBR 15:18 | PROVIDERS: PCP Internal Medicine; Visit Provider Internal Medicine Medical Oncology | DX: Z13.89 Encounter for screening for other disorder (principal) ==